=== PATIENT | female | born 1960 | race Caucasian/White ===

== ENCOUNTER 2025-06-07 11:54 | Emergency (ER) | payer OTHER ==
[~2025-06-07] VITALS: Ht 157.5 cm; Wt 70.0 kg
[~2025-06-07 11:54] MED LIST: CINNAMON500 MG PO
[2025-06-07] MEDS ORDERED: JARDIANCE25 MG PO (12:17)
[2025-06-07] MEDS ORDERED: ONDANSETRON ODT4 MG PO (13:20)
[2025-06-07] MEDS ORDERED: HYDROCODON-ACE1 EA10 PO (13:20)
[2025-06-07 13:56] VITALS: BP 170/90
== END 2025-06-07 13:07 | disposition home or self-care (01) ==
LOC: ED 11:54
DX: S92.352A Displaced fracture of fifth metatarsal bone, left foot, initial encounter for closed fracture (principal); E11.9 Type 2 diabetes mellitus without complications; Z98.84 Bariatric surgery status; Z88.0 Allergy status to penicillin; Z79.84 Long term (current) use of oral hypoglycemic drugs; Z79.899 Other long term (current) drug therapy; X50.1XXA Overexertion from prolonged static or awkward postures, initial encounter
CPT/HCPCS: 73610; 99283